=== PATIENT | male | born 1955 | race Caucasian/White ===

== ENCOUNTER 2016-07-18 15:43 | Emergency (ER) | payer OTHER, MEDICARE, BC ==
[~2016-07-18 15:43] MED LIST: LORTAB 10/500 T1 TAB PO; MS CONTIN PO; MS CONTIN30 MG PO; ORAMORPH SR30 MG PO; OXYCONTIN PO; PERCOCET 10/31 UDTA1 PO; PERCOCET 10/3251 TAB; PERCOCET 10/3251 TAB PO; PERCOCET PO; PREDNISONE PO; PREDNISONE5 MG PO
== END 2016-07-18 17:45 | disposition home or self-care (01) ==
LOC: CED 15:43
DX: G89.29 Other chronic pain (principal); M54.5 Low back pain; F17.200 Nicotine dependence, unspecified, uncomplicated
CPT/HCPCS: 96372; 99283; J1885

== ENCOUNTER 2016-08-02 11:11 | Emergency (ER) | payer MEDICARE, BC, OTHER | END 2016-08-02 14:10 | disposition home or self-care (01) | LOC: CED 11:11 | DX: Z53.21 Procedure and treatment not carried out due to patient leaving prior to being seen by health care provider (principal) ==